=== PATIENT | male | born 1965 | race Asian ===

== ENCOUNTER 2019-06-02 08:28 | Emergency (ER) | payer MEDICARE, OTHER, SELFPAY ==
[~2019-06-02] VITALS: Ht 200.7 cm; Wt 144.0 kg
[2019-06-02 10:05] VITALS: BP 115/76
== END 2019-06-02 11:02 | disposition home or self-care (01) ==
LOC: ED 10:56
DX: M54.12 Radiculopathy, cervical region (principal); R20.2 Paresthesia of skin; E11.9 Type 2 diabetes mellitus without complications
CPT/HCPCS: 36415; 70450; 72125; 80048; 82040; 82962; 85025; 93005; 99284

== ENCOUNTER 2019-07-08 10:55 | Inpatient (IN) | payer OTHER ==
[~2019-07-08] VITALS: Ht 182.9 cm; Wt 135.0 kg
[~2019-07-08 10:55] MED LIST: BENAZEPRIL; JENTADUETO
--- NOTE | 2019-07-08 11:15 | NUR ---
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
--- NOTE | 2019-07-08 11:45 | NUR ---
SEPERATE ER PROVIDER AT BEDSIDE
--- NOTE | 2019-07-08 12:05 | NUR ---
TO CT SCAN
[2019-07-08 12:47] LABS: BASOPHILS # (AUTO) 0.05 x10^3/uL (0-0.1); BASOPHILS % (AUTO) 1 % (0-1); EOSINOPHILS # (AUTO) 0.15 x10^3/uL (0-0.4); EOSINOPHILS % (AUTO) 2 % (1-7); LYMPHOCYTES % (AUTO) 20 % (22-44); MD NO; MEAN CORPUSCULAR HEMOGLOBIN 30.4 pg (27.5-34.5); MEAN CORPUSCULAR HGB CONC 33.3 g/dL (33.2-36.2); MEAN CORPUSCULAR VOLUME 91.2 fL (81-97); MEAN PLATELET VOLUME 8.1 fL (7.4-10.4); MONOCYTES # (AUTO) 0.54 x10^3/uL (0.2-0.8); MONOCYTES % (AUTO) 6 % (2-9); NEUTROPHILS % (AUTO) 71 % (42-75); PLATELET COUNT 249 x10^3/uL (130-400); RED BLOOD COUNT 4.82 x10^6/uL (4.38-5.82); RED CELL DISTRIBUTION WIDTH 13.8 % (9.4-14.8)
[2019-07-08 12:58] LABS: ALBUMIN 3.7 g/dL (3.4-5.0); ANION GAP 7 mmol/L (5-15); CHLORIDE 108 mmol/L (98-107)
[2019-07-08] MEDS ORDERED: ASPIRIN 325 MG TABLET PO ONE (13:00)
[2019-07-08] MEDS ORDERED: SODIUM CHLORIDE FLUSH 10ML SYR IVF ONE (13:00)
[2019-07-08] MEDS ORDERED: CLOPIDOGREL 300 MG TABLET PO ONE (13:00)
[2019-07-08 13:01] LABS: ALANINE AMINOTRANSFERASE 33 U/L (12-78); ALKALINE PHOSPHATASE 75 U/L (45-117); BILIRUBIN,TOTAL 0.1 mg/dL (0.2-1.0); CREATININE 1.11 mg/dL (0.7-1.3); SALICYLATE LEVEL 3.7 mg/dL (2.8-20.0); TOTAL PROTEIN 7.3 g/dL (6.4-8.2); TROPONIN I < 0.015 ng/mL (0.000-0.045)
--- NOTE | 2019-07-08 13:02 | NUR ---
BREAK RN: PT PASSES SWALLOW EVAL. REQUESTS FOOD, PER DR SOTO PT IS TO REMAIN NPO UNTIL FURTHER TESTS ARE COMPETED. PT INFORMED, FAMILY ACK UNDERSTANDING. PT TO MRI WITH TECH TRANSPORT AND .
--- NOTE | 2019-07-08 13:10 | NUR ---
lactate noted to be 2.2. cxr reads suspects pna- plan to treat discussed with Provider As patient with no abnormal vitals/ no wob/ clear lungs to ausclutation: no ivf-md to consider abx- to priorotize stroke work up first
[2019-07-08] MEDS ORDERED: CLOPIDOGREL 75 MG TABLET ONE (13:24)
[2019-07-08] MEDS ORDERED: ASPIRIN 81 MG TABLET CHEW ONE (13:24)
[2019-07-08 13:29] LABS: AMPHETAMINE SCREEN, URINE Negative (Negative); BARBITURATE SCREEN, URINE Negative (Negative); BENZODIAZEPINE SCREEN, URINE Negative (Negative); CANNABINOID SCREEN, URINE Negative (Negative); COCAINE SCREEN, URINE Negative (Negative); METHADONE SCREEN, URINE Negative (Negative); OPIATE SCREEN, URINE Positive (Negative)
[2019-07-08] MEDS ORDERED: LORazepam 1MG TABLET ONE (13:38)
--- NOTE | 2019-07-08 13:40 | NUR ---
MEDICATED PER EMAR (DOSES CLARIFIED W/ ER PROVIDER PRIOR TO ADMIN) 300MG PLAVIX, 324 OF ASA (4 81MG) & 1MG ATIVAN REMAINS WITH RECEPTIVE AND EXPRESSIVE DIFFICULTIES
--- NOTE | 2019-07-08 13:59 | NUR ---
MOVED TO HOSPITAL BED PROVIDER TO BEDSIDE0-REPORTS MRI RESULTED-READ MORE WORRISOME THAN CT SCAN VITALS STABLE ON PLEATER REMAINS SYMPTOMATIC (EXPRESIVE/RECEPTIVE APHASIA) Addendum: 07/08/19 at 1541 by RFRUHLING NOT APHASIA- INSTEAD DYSPHONIA
[2019-07-08] MEDS ORDERED: LORazepam 1MG TABLET PO ONE (14:00)
--- NOTE | 2019-07-08 14:15 | NUR ---
TO RADIOLOGY FOR NECK/HEAD CTA
[2019-07-08] MEDS ORDERED: OMNIPAQUE 350 MG/ML, 100ML BOTTLE ONE (14:51)
[2019-07-08] MEDS ORDERED: SODIUM CHLORIDE FLUSH 10ML SYR IVF PRN (15:00)
--- NOTE | 2019-07-08 15:40 | NUR ---
ATIVAN WITH MINIMAL EFFECT-PATIENT STILL UNCOMFORTABLE/EMOTIONAL IN R/T CONTINUED RECPETIVE/EXPRESSIVE DYSPHONIA HOSPITALIST AT BEDSIDE
[2019-07-08] MEDS ORDERED: NICOTINE 21 MG/24 HR PATCH.TD24 TD ONE ×2 (16:00→17:00)
[2019-07-08] MEDS ORDERED: ONDANSETRON 4 MG TABLET PO PRN (16:00)
[2019-07-08] MEDS ORDERED: POLYETHYLENE GLYCOL 17 GM PACKET PO PRN (16:00)
[2019-07-08] MEDS ORDERED: MORPHINE SULFATE 4 MG/ML, 1ML IVPush ONE (16:00)
--- NOTE | 2019-07-08 16:22 | NUR ---
NEURO AT BEDSIDE (DR. PERRY)
[2019-07-08] MEDS ORDERED: NICOTINE 21 MG/24 HR PATCH.TD24 ONE (16:27)
[2019-07-08] MEDS ORDERED: MORPHINE SULFATE 4 MG/ML, 1ML ONE (16:27)
[2019-07-08] MEDS ORDERED: CEFTRIAXONE PMX 2GM/50ML 50 ML ONE (16:28)
[2019-07-08] MEDS: CEFTRIAXONE PMX 2GM/50ML 50 ML IV SCH (16:33)
--- NOTE | 2019-07-08 16:39 | NUR ---
MEDICATED PER EMAR FOR GENERALIZED FORD AT Addendum: 07/08/19 at 1640 by RFRUHLING FORD AT 05/14, ALSO ADMINISTERED NICOTINE PATCH & ABX FOR PNS LAB AT BEDSIDE TO DRAW REPEAT LACTATE
[2019-07-08] MEDS: AZITHROMYCIN 500 MG in SODIUM CHLORIDE 0.9% 250 ML IV SCH (16:44)
--- NOTE | 2019-07-08 16:47 | NUR ---
NEURO EXAM UNCHANGED, PATIENT STILL WITH RECEPTIVE/EXPRESSIVE DYSPHAGIA. ABX 2/2 STARTED
--- NOTE | 2019-07-08 17:55 | NUR ---
PATIENT NOW DEEP ASLEEP PLACED ON 2L NC (MORPHINE?) FAMILY AT BEDSIDE REPORTS PATIENT AWAKES INTERMITENTLY CONTINUES TO HAVE EXPRESSIVE/RECEPTIVE DYSPHAGIA
[2019-07-08] MEDS ORDERED: LINA1TAB5 PO (18:02)
[2019-07-08] MEDS ORDERED: BENA1TAB10 PO (18:02)
[2019-07-08] MEDS ORDERED: HYDR-3241 PO (18:02)
[2019-07-08 20:00] VITALS: BP 132/77
[2019-07-08 21:13] LABS: MICROSCOPIC NOT IND
[2019-07-08 21:20] LABS: CULTURE INDICATED? NO
[2019-07-08] MEDS: ATORVASTATIN 40 MG TABLET PO SCH (21:44)
[2019-07-08] MEDS: OXYcodone/APAP 5/325MG TABLET PO PRN (21:44)
[2019-07-09] MEDS: ACETAMINOPHEN 650 MG/20.3 ML UDC PO PRN ×2 (02:11→17:37)
[2019-07-09 03:44] VITALS: BP 130/78
[2019-07-09] MEDS ORDERED: ASPIRIN 81 MG TABLET EC PO SCH (06:00)
[2019-07-09 06:22] LABS: CHOL/HDL RATIO 4.8; LDL/HDL RATIO 2.4 (0.5-3.0)
[2019-07-09 08:23] VITALS: BP 116/73
[2019-07-09] MEDS: CLOPIDOGREL 75 MG TABLET PO SCH (09:32)
[2019-07-09] MEDS: ASPIRIN 325 MG TABLET PO SCH (09:32)
[2019-07-09] MEDS: INSULIN LISPRO 100 UNITS/ML, PEN SQ-INSULIN SCH ×4 (09:33→20:07)
[2019-07-09] MEDS: OXYcodone/APAP 5/325MG TABLET PO PRN ×2 (11:52→20:06)
[2019-07-09 12:29] VITALS: BP 120/69
[2019-07-09] MEDS: CEFTRIAXONE PMX 2GM/50ML 50 ML IV SCH ×2 (16:06→16:34)
[2019-07-09] MEDS: AZITHROMYCIN 500 MG in SODIUM CHLORIDE 0.9% 250 ML IV SCH (17:21)
[2019-07-09] MEDS: HEPARIN 5,000 UNITS/ML, 1ML SQ SCH (17:38)
[2019-07-09] MEDS ORDERED: NICOTINE 21 MG/24 HR PATCH.TD24 ONE (19:58)
[2019-07-09] MEDS: ATORVASTATIN 40 MG TABLET PO SCH (20:05)
[2019-07-09] MEDS: NICOTINE 21 MG/24 HR PATCH.TD24 TD SCH (20:05)
[2019-07-09 20:40] VITALS: BP 126/82
[2019-07-10] MEDS ORDERED: LORazepam 0.5MG TABLET PO ONE (01:00)
[2019-07-10] MEDS: HEPARIN 5,000 UNITS/ML, 1ML SQ SCH ×3 (01:11→17:12)
[2019-07-10 02:10] VITALS: BP 123/77
[2019-07-10] MEDS: OXYcodone/APAP 5/325MG TABLET PO PRN ×3 (03:39→16:04)
[2019-07-10 07:27] VITALS: BP 121/87
[2019-07-10] MEDS: CLOPIDOGREL 75 MG TABLET PO SCH (07:58)
[2019-07-10] MEDS: ASPIRIN 325 MG TABLET PO SCH (07:58)
[2019-07-10] MEDS: INSULIN LISPRO 100 UNITS/ML, PEN SQ-INSULIN SCH ×4 (07:59→20:26)
[2019-07-10 13:08] VITALS: BP 126/80
[2019-07-10] MEDS ORDERED: ASPI325T17 PO (13:38)
[2019-07-10] MEDS ORDERED: NICO-487 TD (13:38)
[2019-07-10] MEDS ORDERED: ACET650S21 PO (13:38)
[2019-07-10] MEDS ORDERED: AZIT500T PO (13:38)
[2019-07-10] MEDS ORDERED: METF500T17 PO (13:38)
[2019-07-10] MEDS ORDERED: POLY17PO5 PO (13:38)
[2019-07-10] MEDS ORDERED: ATOR40TA78 PO (13:38)
[2019-07-10] MEDS ORDERED: CLOP75TA PO (13:40)
[2019-07-10] MEDS: CEFTRIAXONE PMX 2GM/50ML 50 ML IV SCH (16:10)
[2019-07-10] MEDS: AZITHROMYCIN 500 MG in SODIUM CHLORIDE 0.9% 250 ML IV SCH (17:11)
[2019-07-10] MEDS: ATORVASTATIN 40 MG TABLET PO SCH (20:24)
[2019-07-10] MEDS: ACETAMINOPHEN 650 MG/20.3 ML UDC PO PRN (20:24)
[2019-07-10 21:29] VITALS: BP 119/76
[2019-07-11] MEDS: OXYcodone/APAP 5/325MG TABLET PO PRN (01:35)
[2019-07-11] MEDS: HEPARIN 5,000 UNITS/ML, 1ML SQ SCH ×3 (01:35→18:08)
[2019-07-11 02:03] VITALS: BP 121/83
[2019-07-11] MEDS: ACETAMINOPHEN 650 MG/20.3 ML UDC PO PRN (04:50)
[2019-07-11] MEDS: ASPIRIN 325 MG TABLET PO SCH (05:00)
[2019-07-11] MEDS: INSULIN LISPRO 100 UNITS/ML, PEN SQ-INSULIN SCH ×4 (07:56→21:00)
[2019-07-11 08:19] VITALS: BP 118/82
[2019-07-11] MEDS: CLOPIDOGREL 75 MG TABLET PO SCH (09:24)
[2019-07-11] MEDS: NICOTINE 21 MG/24 HR PATCH.TD24 TD SCH (09:25)
[2019-07-11] MEDS: HYDROcodone/APAP 5/325 TABLET PO PRN ×3 (10:24→23:46)
[2019-07-11 13:32] VITALS: BP 116/77
[2019-07-11] MEDS: CEFTRIAXONE PMX 2GM/50ML 50 ML IV SCH (16:35)
[2019-07-11] MEDS: AZITHROMYCIN 500 MG in SODIUM CHLORIDE 0.9% 250 ML IV SCH (17:34)
[2019-07-11 20:56] VITALS: BP 128/77
[2019-07-11] MEDS: ATORVASTATIN 40 MG TABLET PO SCH (21:00)
[2019-07-12 02:49] VITALS: BP 122/76
[2019-07-12] MEDS: HEPARIN 5,000 UNITS/ML, 1ML SQ SCH ×3 (02:51→18:39)
[2019-07-12] MEDS: ASPIRIN 325 MG TABLET PO SCH (05:38)
[2019-07-12 08:39] VITALS: BP 127/85
[2019-07-12] MEDS: INSULIN LISPRO 100 UNITS/ML, PEN SQ-INSULIN SCH ×4 (09:07→21:00)
[2019-07-12] MEDS: NICOTINE 21 MG/24 HR PATCH.TD24 TD SCH (09:12)
[2019-07-12] MEDS: CLOPIDOGREL 75 MG TABLET PO SCH (09:12)
[2019-07-12] MEDS: HYDROcodone/APAP 5/325 TABLET PO PRN (13:33)
[2019-07-12 14:28] VITALS: BP 106/69
[2019-07-12] MEDS: LACTOBACILLUS 1GM/ PACKET PO SCH ×2 (17:29→21:52)
[2019-07-12 21:32] VITALS: BP 110/71
[2019-07-12] MEDS: ACETAMINOPHEN 650 MG/20.3 ML UDC PO PRN (21:52)
[2019-07-12] MEDS: ATORVASTATIN 40 MG TABLET PO SCH (21:52)
[2019-07-13 01:06] VITALS: BP 116/73
[2019-07-13] MEDS: HYDROcodone/APAP 5/325 TABLET PO PRN ×2 (01:43→20:33)
[2019-07-13] MEDS: HEPARIN 5,000 UNITS/ML, 1ML SQ SCH ×3 (01:43→20:25)
[2019-07-13] MEDS: ASPIRIN 325 MG TABLET PO SCH (05:40)
[2019-07-13] MEDS: ACETAMINOPHEN 650 MG/20.3 ML UDC PO PRN (06:30)
[2019-07-13] MEDS: LACTOBACILLUS 1GM/ PACKET PO SCH ×3 (08:00→20:25)
[2019-07-13] MEDS: INSULIN LISPRO 100 UNITS/ML, PEN SQ-INSULIN SCH ×4 (08:00→20:26)
[2019-07-13] MEDS: CLOPIDOGREL 75 MG TABLET PO SCH (08:01)
[2019-07-13] MEDS: NICOTINE 21 MG/24 HR PATCH.TD24 TD SCH (08:01)
[2019-07-13 09:25] VITALS: BP 113/73
[2019-07-13 14:00] VITALS: BP 137/81
[2019-07-13 19:32] VITALS: BP 139/93
[2019-07-13] MEDS: ATORVASTATIN 40 MG TABLET PO SCH (20:25)
[2019-07-14 00:55] VITALS: BP 104/68
[2019-07-14] MEDS: HYDROcodone/APAP 5/325 TABLET PO PRN (02:22)
[2019-07-14 02:52] VITALS: BP 123/89
[2019-07-14] MEDS: INSULIN LISPRO 100 UNITS/ML, PEN SQ-INSULIN SCH ×3 (07:00→16:34)
[2019-07-14 07:20] VITALS: BP 113/74
[2019-07-14] MEDS: HEPARIN 5,000 UNITS/ML, 1ML SQ SCH ×2 (08:47→16:34)
[2019-07-14] MEDS: LACTOBACILLUS 1GM/ PACKET PO SCH ×2 (08:47→16:34)
[2019-07-14] MEDS: ASPIRIN 325 MG TABLET PO SCH (08:47)
[2019-07-14] MEDS: NICOTINE 21 MG/24 HR PATCH.TD24 TD SCH (08:48)
[2019-07-14] MEDS: CLOPIDOGREL 75 MG TABLET PO SCH (08:48)
[2019-07-14 12:25] VITALS: BP 127/86
== END 2019-07-14 17:20 | DRG 64 ==
LOC: ED 13:28 → SUATTDRO 14:45 → EDIP 15:37 → 4EST 18:18
PROVIDERS: ADMIT Internal Medicine; ATTEND Internal Medicine
DX: I63.512 Cerebral infarction due to unspecified occlusion or stenosis of left middle cerebral artery (principal); J18.1 Lobar pneumonia, unspecified organism; E87.2 Acidosis; E11.9 Type 2 diabetes mellitus without complications; M54.9 Dorsalgia, unspecified; G89.29 Other chronic pain; I10 Essential (primary) hypertension; R29.706 NIHSS score 6; N52.9 Male erectile dysfunction, unspecified; R26.81 Unsteadiness on feet; F17.210 Nicotine dependence, cigarettes, uncomplicated; K59.00 Constipation, unspecified; R47.01 Aphasia; R29.810 Facial weakness; Z82.49 Family history of ischemic heart disease and other diseases of the circulatory system; Z80.3 Family history of malignant neoplasm of breast; Z79.82 Long term (current) use of aspirin; Z79.02 Long term (current) use of antithrombotics/antiplatelets; Z79.899 Other long term (current) drug therapy
CPT/HCPCS: 36415; 70450; 70496; 70498; 70551; 71045; 80053; 80061; 80307; 81003; 82962; 83036; 83605; 83735; 83880; 84484; 85025; 93005; 93306; 99291; G0378; J0456; J0696; J1644; Q9967; 92523-GN; J1815; J2270; J7050

== ENCOUNTER 2020-11-10 16:48 | Emergency (ER) | payer MEDICAID, OTHER ==
[~2020-11-10] VITALS: Ht 200.7 cm; Wt 144.1 kg
[~2020-11-10 16:48] MED LIST changes: +ACET650S21 PO; +ASPI325T17 PO; +ATOR40TA78 PO; +AZIT500T PO; +BENA1TAB10 PO; +CLOP75TA PO; +HYDR-3241 PO; +LINA1TAB5 PO; +METF500T17 PO; +NICO-587 TD; +POLY17PO5 PO
--- NOTE | 2020-11-10 17:20 | NUR ---
CONTACT WITH PT, 55 YR OLD MALE HERE WITH C/O "AT HOME HIS BLOOD SUGAR WAS 485. HE TOOK ANOTHER GLIPIZIDE AND HIS BLOOD SUGAR WAS LOWER HERE" PT HERE WITH GAVIN. PT HAS HX OF SIMIN, "GLOBAL APHASIA WITH APRAXIA"
[2020-11-10 18:30] LABS: BASOPHILS % (AUTO) 1 % (0-1); EOSINOPHILS % (AUTO) 2 % (1-7); LYMPHOCYTES % (AUTO) 28 % (22-44); MD NO; MEAN CORPUSCULAR HGB CONC 34.4 g/dL (33.2-36.2); MONOCYTES % (AUTO) 8 % (2-9); NEUTROPHILS % (AUTO) 62 % (42-75); PLATELET COUNT 197 x10^3/uL (130-400); RED BLOOD COUNT 4.87 x10^6/uL (4.38-5.82); RED CELL DISTRIBUTION WIDTH 14.6 % (9.4-14.8)
[2020-11-10 18:39] LABS: CALCIUM 9.4 mg/dL (8.5-10.1); CHLORIDE 108 mmol/L (98-107)
[2020-11-10 18:41] LABS: CREATININE 1.06 mg/dL (0.7-1.3)
[2020-11-10 18:42] LABS: ANION GAP 5 mmol/L (5-15)
--- NOTE | 2020-11-10 18:55 | NUR ---
REPORT TO ANGELA JACOME.
--- NOTE | 2020-11-10 18:58 | NUR ---
report recieved from soraya alvarez
[2020-11-10 20:21] VITALS: BP 116/62
--- NOTE | 2020-11-10 20:21 | NUR ---
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 verbalized understanding.
== END 2020-11-10 20:24 | disposition home or self-care (01) ==
LOC: ED 17:16
DX: E11.65 Type 2 diabetes mellitus with hyperglycemia (principal); Z87.891 Personal history of nicotine dependence
CPT/HCPCS: 36415; 80048; 82962; 85025; 99283

== ENCOUNTER 2021-06-01 13:22 | Emergency (ER) | payer MEDICAID ==
[~2021-06-01] VITALS: Ht 200.7 cm; Wt 155.0 kg
--- NOTE | 2021-06-01 13:48 | NUR ---
THIS IS A 56 YO M BIB EMS FROM [facility] W/ C/O LT SIDED ARM PAIN/HEAVINESS, FACE TINGLING AND DIAPHORESIS. UPON EMS ARRIVAL PT FOUND TO BE IN [place]UT[place]. PT DENIES CARDIAC HX. HX OF STROKE W/ HEARING LOSS. PT BEST COMMUNICATES THROUGH WRITING/READING. PT RESTING ON GUNEY W/ CALL LIGHT IN REACH AND SIDE RAILS UPX2, FAMILY AT BEDSIDE. CONNECTED TO ALL MONITORING. RESP EVEN AND UNLABORED, PETROS.
[2021-06-01 14:12] LABS: BASOPHILS % (AUTO) 1 % (0-1); EOSINOPHILS % (AUTO) 2 % (1-7); LYMPHOCYTES % (AUTO) 25 % (22-44); MEAN CORPUSCULAR HEMOGLOBIN 29.8 pg (27.5-34.5); MEAN CORPUSCULAR HGB CONC 34.4 g/dL (33.2-36.2); MEAN PLATELET VOLUME 8.2 fL (7.4-10.4); MONOCYTES % (AUTO) 6 % (2-9); NEUTROPHILS % (AUTO) 65 % (42-75); PLATELET COUNT 235 x10^3/uL (130-400); RED BLOOD COUNT 4.72 x10^6/uL (4.38-5.82)
[2021-06-01 14:25] LABS: ALANINE AMINOTRANSFERASE 26 U/L (12-78); ALBUMIN 3.6 g/dL (3.4-5.0); ANION GAP 5 mmol/L (5-15); CALCIUM 8.9 mg/dL (8.5-10.1); CHLORIDE 111 mmol/L (98-107); CREATININE 0.92 mg/dL (0.7-1.3)
[2021-06-01 14:29] LABS: ALKALINE PHOSPHATASE 82 U/L (45-117); BILIRUBIN,TOTAL 0.2 mg/dL (0.2-1.0); TOTAL PROTEIN 7.4 g/dL (6.4-8.2); TROPONIN I < 0.015 ng/mL (0.000-0.045)
[2021-06-01 14:43] LABS: MICROSCOPIC NOT IND
--- NOTE | 2021-06-01 15:38 | NUR ---
ALL TESTS RESULTED. PT IS UP FOR RECHECK AT THIS TIME.
[2021-06-01] MEDS ORDERED: APIXABAN 5 MG TABLET PO ONE (16:00)
[2021-06-01] MEDS ORDERED: APIXABAN 5 MG TABLET ONE (16:04)
[2021-06-01 16:08] VITALS: BP 133/85
--- NOTE | 2021-06-01 16:41 | NUR ---
Patient given discharge instructions and they have confirmed that they understand the instructions. Patient ambulatory with steady gait.
== END 2021-06-01 16:42 | disposition home or self-care (01) ==
LOC: ED 14:45
DX: I48.91 Unspecified atrial fibrillation (principal); R41.82 Altered mental status, unspecified; R19.7 Diarrhea, unspecified; E11.9 Type 2 diabetes mellitus without complications; Z86.73 Personal history of transient ischemic attack (TIA), and cerebral infarction without residual deficits; I10 Essential (primary) hypertension
CPT/HCPCS: 36415; 70450; 71045; 80053; 81003; 84484; 85025; 99285